=== PATIENT | female | born 1985 | race Two or more races ===

== ENCOUNTER 2017-03-19 00:38 | Emergency (ER) | payer MEDICAID ==
[~2017-03-19] VITALS: Ht 160 cm; Wt 77.1 kg
[2017-03-19 01:17] LABS: Basophils # (auto) 0 uL; Basophils % (auto) 0.2 % (0.0-2.0); CONDITION Y; Eosinophils # (auto) 0 uL; Eosinophils % (auto) 0.1 % (0.0-7.0); Hematocrit 39.2 % (36.0-46.0); Hemoglobin 13.2 g/dL (12.2-16.2); Lymphocytes % (auto) 6.8 % (10.0-50.0); Mean Corpuscular Hemoglobin 30.7 pg (28.0-32.0); Mean Corpuscular Hgb Conc. 33.7 g/dL (32.0-36.0); Mean Platelet Volume 7.4 fL (6.9-10.8); Monocytes # (auto) 0.4 uL; Monocytes % (auto) 2.5 % (0.0-12.0); Neutrophils # (auto) 12.9 uL; Neutrophils % (auto) 90.4 % (37.0-80.0); Platelet Count (auto) 296 10^3/uL (140-450); Red Cell Distribution Width 13.5 % (11.8-14.3); White Blood Cell 14.3 10^3/uL (4.4-10.8)
[2017-03-19] MEDS ORDERED: ONDANSETRON HCL 4 MG/2 ML VIAL IV ONE (01:30)
[2017-03-19] MEDS ORDERED: SODIUM CHLORIDE 0.9% 1,000 ML IV ONE (01:30)
[2017-03-19 01:42] LABS: Albumin 2.9 g/dL (3.4-5.0); Anion Gap 14 (5-15); Aspartate Aminotransferase 14 U/L (15-37); BUN/Creatinine Ratio 5.8; Blood Urea Nitrogen 4 mg/dL (7-18); Calcium 8.4 mg/dL (8.5-10.1); Carbon Dioxide 17 mmol/L (21-32); Chloride 109 mmol/L (98-107); GFR African American 126 mL/min; GFR Non-African American 104 mL/min; Glucose 117 mg/dL (74-106); Magnesium 2.1 mg/dL (1.6-2.6); Potassium 3.4 mmol/L (3.5-5.1); Sodium 140 mmol/L (136-145)
[2017-03-19] MEDS ORDERED: MAGNESIUM SULFATE 40MG/ML 1,000 ML IV SCH (02:05)
[2017-03-19 02:19] LABS: Fibrinogen 497.4 mg/dL (177-375)
[2017-03-19] MEDS ORDERED: TERBUTALINE SULFATE 1 MG/ML 1ML VIAL SC PRN (02:30)
[2017-03-19 02:33] LABS: Alkaline Phosphatase 117 U/L (45-117); Bilirubin, Total < 0.1 mg/dL (0.2-1.0); Total Protein 7.3 g/dL (6.4-8.2)
[2017-03-19 02:39] LABS: Urine Bilirubin Negative (Negative); Urine Blood 1+ /uL (Negative); Urine Color Yellow (Yellow); Urine Glucose Normal (Normal); Urine Ketone 1+ (Negative); Urine Mucus FEW (None Seen); Urine Nitrite Negative (Negative); Urine RBC 4 /hpf (0 - 4); Urine Squamous Epithelial Cell FEW /hpf (<5); Urine Urobilinogen Normal (Negative); Urine pH 5.5 (5.0-8.0)
[2017-03-19] MEDS ORDERED: PHENYTOIN IV DILANTIN 1,000 MG in SODIUM CHL 0.9% 250 ML IV ONE (03:00)
[2017-03-19 03:09] LABS: Uric Acid 4.8 mg/dL (2.6-6.0)
[2017-03-19] MEDS ORDERED: PHENYTOIN SODIUM 50 MG/ML 5ML INJ VIAL IV ONE (03:17)
[2017-03-19 07:13] VITALS: BP 116/57
== END 2017-03-19 07:36 | disposition short-term general hospital (02) ==
LOC: ER 00:41
DX: O47.03 False labor before 37 completed weeks of gestation, third trimester (principal); O26.893 Other specified pregnancy related conditions, third trimester; G40.909 Epilepsy, unspecified, not intractable, without status epilepticus; Z3A.33 33 weeks gestation of pregnancy
CPT/HCPCS: 36415; 76818; 80053; 80185; 81001; 83735; 84550; 85025; 85379; 85384; 96361; 96365; 96366; 96367; 96375; 99285; J1165; J2405; J3475; J7050